=== PATIENT | male | born 1990 | race Two or more races ===

== ENCOUNTER 2018-01-20 06:59 | Emergency (ER) | payer SELFPAY ==
[~2018-01-20] VITALS: Ht 165.1 cm; Wt 86.2 kg
[2018-01-20 07:05] VITALS: BP 163/108
--- NOTE | 2018-01-20 07:20 | NUR ---
D/C INSTRUCTIONS GIVEN AND EXPLAINED. NO BARBS IN PATIENT FROM [facility]AT[facility] MODI. PT D/C
== END 2018-01-20 07:21 | disposition home or self-care (01) ==
LOC: ER 07:01
DX: S20.411A Abrasion of right back wall of thorax, initial encounter (principal); W18.39XA Other fall on same level, initial encounter; Y93.89 Activity, other specified; Y92.89 Other specified places as the place of occurrence of the external cause; Y99.8 Other external cause status
CPT/HCPCS: A4606; Z7610